=== PATIENT | female | born 1945 | race Caucasian/White ===

== ENCOUNTER 2016-05-04 16:07 | Inpatient (IN) | payer MEDICARE ==
[~2016-05-04] VITALS: Ht 167.6 cm; Wt 102.2 kg
[~2016-05-04 16:07] MED LIST: Propofol 10,000 mCg/mL 20 mL Inj ONE
[2016-05-04 16:15] VITALS: BP 128/34; PULSE 65; RESP 16; O2SAT 99
--- NOTE | 2016-05-04 16:19 | ED.REPORT ---
HPI-Altered Mental Status Date of Service May 04, 2016 ED Provider: Narciso Macias MD Patient is a 70 year old female on Coumadin with a history of ischemic colitis, atrial fibrillation, diabetes mellitus, hypertension, chronic kidney disease, CABG, coronary artery disease with recent cardiac stenting on 04/28 who presents to the ED via EMS with decreased level of consciousness that began after a seizure-like episode 18 hours ago. Her describes seizure-like activity/ possible syncopal episode, with approximately 2 minutes of loss of consciousness. Her states that she started trembling and then shaking. Her arms went up to her chest and then out from her body, she continued to shake as she stared up to the ceiling. The patient has not returned to her baseline since that time. He states that she has experienced increased weakness and that she has been unable to transfers on her own. The patient is at her baseline otherwise per her and is mentating normally. The patient does not believe that she lost consciousness during this episode, she simply states that she felt "real woozy". Patient admits to nausea on arrival to the ED. The patient underwent cardiac stenting 2 weeks ago at [facility] and was placed on Coumadin after this hospital admission. She has been doing well since that time and recovering in bed. Patient also has a history of anemia and received 2x units of blood during prior hospital admission. The patient states that her tailbone has started hurting for the past 2-3 days, due to increased time spent sitting in bed. She denies any chest pain, difficulty breathing, abdominal pain, diarrhea, or fever. The patient is prescribed narcotic pain medication, but she does not take these medications regularly. Nursing Notes Stated Complaint: ALTERED LEVEL OF CONCIOUSNESS Chief Complaint: General Complaint Nursing Notes Reviewed: Yes Allergies: Coded Allergies: meperidine (Verified Adverse Reaction, Severe, Nausea,Vomiting, 05/04/16) General Time Seen by MD: 16:19 Chief Complaint Decreased responsiveness Hx Obtained From: Patient Arrived By: Ambulance Sudden in Onset?: No Onset Occurred: 17 - 20 hours ago Symptom Duration: Since onset Progression since Onset: Gradually worsening Severity: Current: No pain currently Severity: Maximum: No pain Recent Healthcare: No recent doctor visit, Recent hospitalization, Previous surgery Similar Sx Previous: No Past Medical History Past Medical History ANDRES on CPAP history of anemia ischemic colitis 2x chronic kidney disease history of breast cancer Reports: Coronary artery disease, Diabetes mellitus, Hyperlipidemia, Hypertension Reports: Atrial fibrillation, Thyroid disease Past Surgical History cardiac stenting CABG 3x thryoidectomy colonoscopy 3-4 years ago "they never found anything" Reports: Hysterectomy Smoking History Smoker Current Status UNK Social History Other Social History: Good social support, , Local resident Ambulatory Status Independent Review of Systems Constitutional: Denies: Chills, Fever Respiratory: Denies: Shortness of breath Cardiovascular: Denies: Chest pain GI: Reports: Nausea, Denies: Abdominal pain, Bloody/tarry stool, Hematochezia Neurologic: Reports: Change LOC, Dizziness, Seizure (possible), Shaking, Syncope (possible) Complete sys rev & neg: except as marked. Physical Exam Initial Vital Signs Vital Signs (First) Date Time Temp Pulse Resp B/P Pulse Ox O2 Delivery O2 Flow Rate FiO2 05/04/16 16:15 36.5 65 16 128/34 99 Room Air Initial VS: Reviewed ENT: Conjunctiva normal, No scleral icterus Skin: Warm, Dry, No cyanosis Psychiatric: Mood/affect normal, Behavior normal, Normal thought content General/Constitutional: Awake, Alert, No acute distress Appearance / Presentation: Positive: Obese responding and answering questions appropriately Head / Eyes: Atraumatic, Normocephalic, PERRL Neck: Supple, No meningismus Respiratory / Chest: Breath sounds NL, Breath sounds = bilat, No respiratory distress, No rales, No rhonchi, No wheezing Cardiovascular: Heart rate NL, Regular rhythm, Heart sounds NL, No gallop, No murmurs, No rubs Neurologic: Oriented X3, Speech NL, CN II - XII intact Abdomen: Soft, Non-tender Back: No midline vertebral tend no decubitus ulcers Upper Extremity / MS: No swelling, No edema Lower Extremity / Pelvis / MS: No swelling, No edema Rectum / Perineum: No gross blood Rectal for Blood: Positive: Blood - occult heme + (blood red stool) Boom Cat Operator present Interpretation & Diagnostics Lab Results Interpretation Result Diagram: 05/04/16 1630 05/04/16 1630 Test 05/04/16 16:30 White Blood Count 17.6th/mm3 (3.8-10.1) Red Blood Count 1.78mil/mm3 (3.90-5.20) Hemoglobin 5.2g/dL (12.0-15.6) Hematocrit 17.1% (35.0-46.0) Mean Corpuscular Volume 96fL (81-100) Mean Corpuscular Hemoglobin 29.2pg (27.0-35.0) Mean Corpuscular Hemoglobin Concent 30.4% (32.0-37.0) Red Cell Distribution Width 18.8% (12.3-15.4) Platelet Count 432bil/L (150-400) Neutrophils (%) (Auto) 83% (40-74) Lymphocytes (%) (Auto) 11% (14-46) Monocytes (%) (Auto) 5% (4-12) Eosinophils (%) (Auto) 1% (0-5) Basophils (%) (Auto) 0% (0-3) Prothrombin Time 58.9sec (8.1-12.5) Prothromb Time International Ratio 5.32ratio Sodium Level 135mEq/L (134-144) Potassium Level 4.4mEq/L (3.5-5.2) Chloride Level 99mEq/L (97-108) Carbon Dioxide Level 22mmol/L (18-29) Blood Urea Nitrogen 121mg/dL (8-27) Creatinine 1.97mg/dL (0.57-1.00) Estimat Glomerular Filtration Rate 36mL/min (>59) Glucose Level 202mg/dL (60-99) Lactic Acid Level 1.8mmol/L (0.4-2.0) Calcium Level 8.6mg/dL (8.5-10.1) Magnesium Level 2.7mg/dL (1.6-2.6) Total Bilirubin 0.2mg/dL (0.0-1.2) Aspartate Amino Transf (AST/SGOT) 23U/L (0-50) Alanine Aminotransferase (ALT/SGPT) 18U/L (0-32) Alkaline Phosphatase 63U/L (25-165) Troponin T < 0.010ug/L (0.0-0.011) Pro-B-Type Natriuretic Peptide 619.0pg/mL (0-301) Total Protein 5.9g/dL (6.4-8.4) Albumin 3.4g/dL (3.4-5.0) ECG Interpretation ECG Interpretation: Sinus rhythm, Rate [address] or T wave changes Time: 17:15 Interpreted by: ED physician Normal ECG Interpretation: No acute ischemic changes X-Ray Chest Interpretation Chest Xray Interpretation: IMPRESSION: Improved aeration of the bilateral lungs when compared with the prior chest film dated 04/21/16. Dictated by: Lily Pereria M.D. on 05/04/2016 at 16:44 Approved by: Lily Pereira M.D. on 05/04/2016 at 16:44 View: Portable Interpretation / Wet Read by: Interpret - Radiologist CT Head Interpretation IMPRESSION: 1. No acute intracranial findings. 2. Moderate findings likely associated with chronic microvascular ischemic changes. Dictated by: Lily Pereira M.D. on 05/04/2016 at 17:00 Approved by: Lily Pereira M.D. on 05/04/2016 at 17:00 Study: Head CT no contrast Interpretation / Wet Read by: Interpret - Radiologist Re-Eval/Medical Decision Med Decision/Clinical Course 70-year-old female history of CAD, atrial fibrillation, cardiac stent placed 2 weeks ago presenting with syncopal event last night. Blood pressures are stable. Hemoglobin is 5. INR is 5. Guaiac positive stools with red tint. Discussed with GI who recommends admission with GoLYTELY and PPI drip. I also ordered 2 units PRBCs, 2 units FFP, vitamin K 10 mg. She will be admitted to the hospitalist Dr. Grayson, [facility]. She is on Plavix for her stent and her pattern finisher will need to be contacted regarding discontinuing Plavix in the setting of recent stent. She has had colonoscopies in the past at outside facility and was told everything was normal other than history of possible ischemic colitis in the past. She denies any abdominal pain at this time. Admit to PCC. Source of Hx: Old records Re-Evaluation/Progress #1: Time of Eval: 17:20 Re-Evaluation/Progress Note: Rechecked the patient to discuss the results of her labs. She was found to be anemic. Patient has a history of anemia, but they do not know where her exact bleeding source was. However, she has had 2x episodes of ischemic colitis previously. Patient does not have a GI physician in the area. Her last colonoscopy was 3-4 years ago. She denies having any bloody or tarry stool. Patient reports receiving 2x units of blood during her recent hospital admission. Re-Evaluation/Progress #2: Time of Eval: 17:40 Patient Status: Condition improved Re-Evaluation/Progress Note: Patient and her understand and agree with the plan for hospital admission. All questions were addressed. Consultation #1: Referral / Consult Name: José Miguel Ward MD Consulted With: On-call physician (GI) Call Returned at: 17:37 Fisheries Inspector: Will see patient, Agrees with eval, Agrees with plan Note: Spoke with FRANK Sullivan, about the patient's case. Admit the patient. Jcarlos velazquez. PPI hernan. He agrees to act as consult on the patient's case. Consultation #2: Referral / Consult Name: Neeraj Grayson MD Consulted With: Hospitalist Call Returned at: 18:08 Fisheries Inspector: Will see patient, Agrees with eval, Agrees with plan, Accepts admit Note: Spoke with Dr. Grayson hospitalist, who agrees to accept admit. Counseled Regarding: Diagnosis, Lab results, Need for admission Patient Discharge & Departure Impression: Primary Impression: GI bleeding GI bleed type/associated pathology: unspecified gastrointestinal hemorrhage type Qualified Code: K92.2 - Gastrointestinal hemorrhage, unspecified Additional Impressions: Anemia Anemia type: unspecified type Qualified Code: D64.9 - Anemia, unspecified Supratherapeutic INR Disposition: ADMITTED TO HOSPITAL Discharge Condition All VS Reviewed: Yes Condition: Stable Scribe Attestation Portions of this note were transcribed by Lakeisha Davis. I, Dr. Macias personally performed the history, physical exam and medical decision-making; I reviewed and confirmed the accuracy of the information in the transcribed note. Signed by: Adelita Rivera, 05/04/2016 1812 Narciso Macias MD May 04, 2016 16:19 Lakeisha Davis May 04, 2016 16:24
[2016-05-04] MEDS ORDERED: Ondansetron 2 mg/mL 2 mL Inj IVPUSH PRN ×2 (16:30→18:15)
--- NOTE | 2016-05-04 16:46 | DRSVH ---
PROCEDURE: X-RAY CHEST ONE VIEW, PORTABLE ([id number]) INDICATIONS: SHORTNESS OF BREATH TECHNIQUE: One view of the chest was acquired. COMPARISON: [facility], CHEST 1 VIEW, 04/21/2016, 14:32. FINDINGS: Surgical changes and devices: Patient is status post median sternotomy and CABG. Lungs and pleura: There is improved aeration of the bilateral lungs when compared with the prior ches t film dated 04/21/16. No acute air space opacities. Lung volumes are low. Mediastinum: Mediastinal contours appear normal. Heart size is normal. Bones and chest wall: No suspicious bony lesions. Overlying soft tissues appear unremarkable. IMPRESSION: Improved aeration of the bilateral lungs when compared with the prior chest film dated . Dictated by: Lily Pereira M.D. on 05/04/2016 at 16:44 Approved by: Lily Pereira M.D. on 05/04/2016 at 16:44
--- NOTE | 2016-05-04 17:02 | DRSVH ---
PROCEDURE: CT BRAIN WITHOUT CONTRAST ([id number]) INDICATIONS: altered mental status TECHNIQUE: Noncontrast 4.5 mm thick angled axial sections acquired from the foramen magnum to the vertex, with c oronal reformats. COMPARISON: [facility], CT, HEAD WITHOUT CONTRAST, 01/29/2016, 16:45. FINDINGS: Image quality: Excellent. CSF spaces: Basal cisterns are patent. No extra-axial fluid collections. The ventricles are symmet olinda in size and shape. Brain: No intracranial bleeds or masses. There is cerebral volume loss for age, with resultant vent ricular and sulcal prominence. There are periventricular and deep white matter chronic small vessel ischemic changes. There is intracranial internal carotid artery atherosclerosis. Skull and face: Calvarium and visualized facial bones appear intact, without suspicious lesions. Sinuses: Visualized sinuses and mastoids are clear. IMPRESSION: 1. No acute intracranial findings. 2. Moderate findings likely associated with chronic microvascular ischemic changes. Dictated by: Lily Pereira M.D. on 05/04/2016 at 17:00 Approved by: Lily Pereira M.D. on 05/04/2016 at 17:00
[2016-05-04 17:06] LABS: Magnesium 2.7 mg/dL (1.6-2.6)
[2016-05-04 17:10] LABS: TROPONIN T < 0.010 ug/L (0.0-0.011)
[2016-05-04 17:15] LABS: INR 5.32 ratio
[2016-05-04 17:17] LABS: Mean Corpuscular Hemoglobin 29.2 pg (27.0-35.0); Mean Corpuscular Volume 96 fL (81-100); Platelet Count 432 bil/L (150-400)
[2016-05-04 17:18] LABS: BASOPHILS % (AUTO) 0 % (0-3); EOSINOPHILS % (AUTO) 1 % (0-5); MONOCYTES % (AUTO) 5 % (4-12); NEUTROPHILS % (AUTO) 83 % (40-74)
[2016-05-04 17:30] VITALS: BP 129/50; PULSE 65; RESP 13; O2SAT 100
[2016-05-04] MEDS ORDERED: Phytonadione (Adult) 10 MG in Dextrose 5%-Pha MIX 50 ML IV ONE (17:35)
[2016-05-04] MEDS ORDERED: Pantoprazole Inj 80 MG, Pharmacy To Mix 1 EA in 0.9% Sodium Chloride 80 ML IV ONE ×2 (17:55)
[2016-05-04] MEDS ORDERED: Alum-Mag Hydrox-Simeth 30 mL Suspension PO PRN (18:15)
--- NOTE | 2016-05-04 18:33 | PCM.HPMED ---
Subjective Date of Service May 04, 2016 Primary Provider: Admitting Physician: Primary Care Physician: Stan Guerra MD Attending Physician: Chief Complaint: Altered mentation/passing out per HISTORY was OBTAINED FROM PATIENT / [facility] NOTES History of present illness 70-year-old female, ischemic colitis history, paroxysmal A. fib/coronary stent on 04/28/2016 discharged 6 days ago w/ new Coumadin and new Plavix from [facility] in [place] with follow up w/ cardiology tomorrow, but then presented after tremulous episode while seated then head went back with loss of consciousness 2 minutes per . vomiting ocurred prior to this episode w/ chronic gagging at baseline, no diarrhea, no food poisoning. baseline Hg 9 per patient after PCP had her taken off iron months ago, no bone marrow bx no capsule endoscopy. no bleeding grossly anywhere except yesterday nose bleed x 1. Coronary stent hospitalization was associated w/ Iron infusion and diuresis of 25lbs per patient. 2007 ischemic colitis associated w/ blood mixed in stool. no blood in stool per patient noted recently. Negative colonoscopy within 5 years per patient. In the ER vital signs stable, hemoglobin 5, INR 5, guaiac per ER doc was grossly bloody, 2 units RBC and FFP and vitamin K ordered. Alagugurusamy GI will scope in the morning. . 2L O2 Review of Systems - none of the following - F/C/sick contact / wt change/ MOLINA / lightheaded / dizziness / sob / cough / cp / bruising / leg swelling / change in voiding / dysuria/ yeast infections / rash / seizure c/o GERD, chronic gagging w/o dysphagia FAMILY HX no ischemic colitis SOCIAL HX 1ppd smoker MEDICATIONS amiodarone diltiazem famotidine percocet gabapentin baclofen oxybutynin vitamins losartan Past Medical/Surgical HX UTI peptic ulcer at age 17, no EGD ever ANDRES on CPAP history of anemia ischemic colitis 2x chronic kidney disease history of breast cancer Diabetes mellitus, Hyperlipidemia, Hypertension, cardiac stenting, CABG 3x Atrial fibrillation, hypothyroidism overactive bladder crhonic pain Past Surgical History thryoidectomy colonoscopy 3-4 years ago "they never found anything" Hysterectomy Allergies Coded Allergies: meperidine (Verified Adverse Reaction, Severe, Nausea,Vomiting, 05/04/16) PMH Social History Smoking Status: Smoker Current Status UNK Exam Vital Signs Vital Sign - Last Date Time Temp Pulse Resp B/P Pulse Ox O2 Delivery O2 Flow Rate FiO2 05/04/16 17:30 65 13 129/50 100 Room Air 05/04/16 16:15 36.5 Lab and Diagnostics Labs Exam on admission 2L NC NAD A and O x 3 mood affect WNL, fatigued, accurate replies, sitting upright NC/AT no icterus keeps eyes closed /no oral lesions / hearing intact Supple neck CTAB equal chest rise / no accessory muscle use / speaks in full sentences / no rrw RRR S1 S2 / no mrg / 2+ radial pulses Soft nt nd + BS no hepatosplenomegaly mild edema shins which are tender to palpation, no cyanosis no ecchymosis of lower extremities No rash / no jaundice MACEDO EKG QTC UA pending LFT neg Trop I neg x 1 PROCEDURE: CT BRAIN WITHOUT CONTRAST ([id number]) INDICATIONS: altered mental status TECHNIQUE: Noncontrast 4.5 mm thick angled axial sections acquired from the foramen magnum to the vertex, with coronal reformats. COMPARISON: [facility], CT, HEAD WITHOUT CONTRAST, 01/29/2016, 16:45. FINDINGS: Image quality: Excellent. CSF spaces: Basal cisterns are patent. No extra-axial fluid collections. The ventricles are symmetric in size and shape. Brain: No intracranial bleeds or masses. There is cerebral volume loss for age , with resultant ventricular and sulcal prominence. There are periventricular and deep white matter chronic small vessel ischemic changes. There is intracranial internal carotid artery atherosclerosis. Skull and face: Calvarium and visualized facial bones appear intact, without suspicious lesions. Sinuses: Visualized sinuses and mastoids are clear. IMPRESSION: 1. No acute intracranial findings. 2. Moderate findings likely associated with chronic microvascular ischemic changes. PROCEDURE: X-RAY CHEST ONE VIEW, PORTABLE ([id number]) INDICATIONS: SHORTNESS OF BREATH TECHNIQUE: One view of the chest was acquired. COMPARISON: [facility], CR, CHEST 1 VIEW, 04/21/2016, 14:32. FINDINGS: Surgical changes and devices: Patient is status post median sternotomy and CABG. Lungs and pleura: There is improved aeration of the bilateral lungs when compared with the prior chest film dated 04/21/16. No acute air space opacities. Lung volumes are low. Mediastinum: Mediastinal contours appear normal. Heart size is normal. Bones and chest wall: No suspicious bony lesions. Overlying soft tissues appear unremarkable. IMPRESSION: Improved aeration of the bilateral lungs when compared with the prior chest film dated 04/21/16. Result Diagram: 05/04/16 1630 05/04/16 1630 Assessment & Plan Active issues and reason for admission 70-year-old female with acute on chronic anemia due to GI bleed presented as syncopal episode, prior ischemic colitis/GERD, hemodynamically stable, associated supratherapeutic INR - new coumadin and new plavix GI bleed --PPI IV BID/ contineu home [id number]/ Transfuse RBCs/FFP/serial hemoglobin/INR , -- GIAlagugurusamy considering waiting on endoscopy, due to recent coronary stent -- clear liquid, -- pending retic count Paroxysmal Atrial fibrillation -- Hold Coumadin Coronary stent 2 weeks ago -- Continue Plavix, contact her hull grinder in [place] -- serial trop I Chronic gagging --TELLER HEAD swallow eval pending DEAN likely, unknown baseline Cr, likely due to hypoperfusion --pending requested reports from cardiology --monitor i/o, monitor CHF symptoms Chronic issues known prior to admission, present on admission smoker, declines patch/gum due to nausea side effect ANDRES on CPAP history of anemia chronic kidney disease history of breast cancer Diabetes mellitus, Hyperlipidemia, Hypertension, cardiac stenting, CABG 3x hypothyroidism overactive bladder chronic pain --SSI / resume all home medications, holding parameters on HTN meds Diet clear liq diet DVT prophylaxis already supratherapeutic and anemic scd Code full Disposition PCC Assessment and plan were discussed with patient family. Neeraj Grayson MD May 04, 2016 18:33
[2016-05-04] MEDS ORDERED: 0.9% Sodium Chloride 250 ML ONE (19:03)
[2016-05-04 19:16] VITALS: BP 124/46; PULSE 66; RESP 12; O2SAT 100
[2016-05-04] MEDS ORDERED: ATOR40TA69 PO (19:44)
[2016-05-04] MEDS ORDERED: CLOP75TA28 PO (19:44)
[2016-05-04] MEDS ORDERED: AMIO200T PO (19:44)
[2016-05-04] MEDS ORDERED: CARV12.52 PO (19:44)
[2016-05-04] MEDS ORDERED: FLUT16SP NASAL (19:44)
[2016-05-04] MEDS ORDERED: WARF3TAB7 PO (19:46)
[2016-05-04] MEDS ORDERED: DILT120C52 PO (19:46)
[2016-05-04] MEDS ORDERED: TORS20TA3 PO (19:46)
[2016-05-04] MEDS ORDERED: OXYB10TA PO (19:46)
[2016-05-04] MEDS ORDERED: BACL20TA PO (19:49)
[2016-05-04] MEDS ORDERED: OMEG1CAP17 PO (19:49)
[2016-05-04] MEDS ORDERED: CALC600T12 PO (19:49)
[2016-05-04] MEDS ORDERED: DULO30CA50 PO (19:49)
[2016-05-04] MEDS ORDERED: ASPI-973 PO (19:49)
[2016-05-04] MEDS ORDERED: DOCU-41 PO (19:49)
[2016-05-04] MEDS ORDERED: GABA-500 PO (19:51)
[2016-05-04] MEDS ORDERED: OXYC-466 PO (19:51)
[2016-05-04] MEDS ORDERED: NOVO7030I SUBQ (19:56)
[2016-05-04] MEDS ORDERED: INSU100V28 SUBQ (19:56)
[2016-05-04] MEDS ORDERED: LEVO125T2 PO (19:56)
[2016-05-04] MEDS ORDERED: LOSA50TA37 PO (19:56)
[2016-05-04] MEDS ORDERED: INSLIS SC (19:57)
[2016-05-04] MEDS ORDERED: SENN-133 PO (20:01)
[2016-05-04] MEDS ORDERED: POLY17PO2 PO (20:01)
[2016-05-04] MEDS ORDERED: PROC10TA PO (20:01)
[2016-05-04] MEDS ORDERED: NITR0.4T6 SL (20:01)
[2016-05-04] MEDS ORDERED: RANI300T4 PO (20:01)
[2016-05-04] MEDS ORDERED: HYDR-3740 PO (20:05)
[2016-05-04] MEDS ORDERED: Glucose 40% Oral Gel 15 Gm Tube PO PRN (20:25)
[2016-05-04] MEDS ORDERED: Polyethylene Glycol (PEG) 17 Gm Powder PO PRN (20:25)
[2016-05-04 20:30] VITALS: BP 147/51; PULSE 71; RESP 16; O2SAT 100
--- NOTE | 2016-05-04 20:30 | NUR ---
Admit Pt arrived to PCC from ED around 2029. Pt arrived with and all belongings. Pt is alert to self, pt did not remember what hospital she was at and was confused on the date, able to reorient pt. Pt arrived to floor with PRBC's running and tolerated first unit of blood well. Pt states that she is incontinent. Pt has not been out of bed but up to bedside to dangle and tolerated well. VSS and Tele SR
[2016-05-04 20:45] VITALS: BP 118/64; PULSE 82; RESP 12
[2016-05-04] MEDS: Insulin LISPRO 300 Unit/3 mL Inj SUBQ SCH (22:00)
[2016-05-04 22:33] VITALS: BP 143/77; PULSE 72; RESP 18; O2SAT 100
[2016-05-04] MEDS: DULoxetine 30 mg DR Capsule PO SCH (23:25)
[2016-05-04] MEDS: Fluticasone 0.05% 15 Spray/2 Gm 16 Gm Nasal Spray NASAL SCH (23:27)
[2016-05-05] VITALS (15 sets, daily range): BP systolic 109–169; BP diastolic 50–74; PULSE 71–86; RESP 16–22; O2SAT 98–100
[2016-05-05] MEDS ORDERED: 0.9% Sodium Chloride 250 ML ONE ×2 (00:07→00:08)
[2016-05-05 02:43] LABS: INR 1.43 ratio
[2016-05-05 03:34] LABS: APPEARANCE,URINE CLOUDY (CLEAR,HAZY); COLOR,URINE STRAW (YELLOW); OCCULT BLOOD,URINE TRACE (NEGATIVE); PH,URINE 5.5 (5.0-8.0); UROBILINOGEN,URINE NORMAL (NORMAL)
[2016-05-05] MEDS: HYDROcodone-APAP 10-325 mg PO PRN ×2 (04:51→19:42)
--- NOTE | 2016-05-05 05:35 | NUR ---
Blood Transfusion Reaction Started second unit of PRBC's around 0100 within 15 mins of transfusion pt c/o of "just not feeling quite right, I have back pain that is different and I feel restless, can't get comfortable, I feel flushed and have chills." Stopped transfusion and notified . Orders to stop this unit and start a new unit were given. Transfusion reaction paperwork completed, UA sent per protocol, blood draw ordered and the unit of PRBC's with suspected reaction sent to lab. Per shift lab technician the new unit of PRBC's will not be started until transfusion reaction investigated, notified.
[2016-05-05 08:59] LABS: INR 1.3 ratio
[2016-05-05 09:12] LABS: TROPONIN T 0.01 ug/L (0.0-0.011)
--- NOTE | 2016-05-05 09:14 | NUR ---
Refused Medications/Mentation Pt refused all medications after scanning and dispensing in medication cup. Acknowledged medications after read back two times, then stated she did not want any of them, except for 1 unit of Lispro. Pt at bedside stating pt is getting worse re mentation. Stating he believes she is having a reaction to the second unit of blood or medications being given. Stated she is not the same person, is asking for MD. This RN notified MD. Hg 5.4, Hct 17.3, pathologists involved to determine if pt is having a reaction.
[2016-05-05] MEDS ORDERED: Acetaminophen IV 1,000 MG in IV Premix 1 EACH IV ONE (09:15)
[2016-05-05 09:39] LABS: Bilirubin, Direct 0.2 mg/dL (0.0-0.3)
[2016-05-05] MEDS ORDERED: 0.9% Sodium Chloride 250 ML IV PRN (11:20)
[2016-05-05] MEDS: Pantoprazole 4 mg/mL 10 mL Inj IVPUSH SCH ×2 (12:32→18:10)
[2016-05-05] MEDS: Insulin LISPRO 300 Unit/3 mL Inj SUBQ SCH ×4 (12:34→19:27)
[2016-05-05] MEDS: Fluticasone 0.05% 15 Spray/2 Gm 16 Gm Nasal Spray NASAL SCH ×2 (12:34→19:24)
[2016-05-05] MEDS: Diltiazem CD 120 mg ER24 Capsule PO SCH (12:36)
--- NOTE | 2016-05-05 15:32 | PCM.CHPMED ---
Subjective Date of Service: May 05, 2016 Provider requesting consult: Neeraj Grayson MD Primary Physician: Admitting Physician: Neeraj Grayson MD Primary Care Physician: Stan Guerra MD Attending Physician: José Miguel Ward MD Chief Complaint: Chief Complaint: Weakness History of Present Illness: Patient is a 70 year old female with a history of ischemic colitis, atrial fibrillation on Coumadin, diabetes mellitus, hypertension, CKD, CABG, and CAD with recent cardiac stenting on 04/28/16 who presents to the ED via EMS with decreased level of consciousness that began after an episode of tremulousness or possible seizure-like activity. Her describes seizure-like activity/ possible syncopal episode, with approximately 2 minutes of loss of consciousness. Her states that she started trembling and then shaking while sitting down; the patient has had increased weakness, unable to transfers on her own, but is at her baseline otherwise per her and is mentating normally. The patient does not believe that she lost consciousness during this episode, she simply states that she felt "real woozy". In the ED, she had a brown bowel movement that was guaiac positive. Her INR was 5.2, Hct 17.1. Cr was 1.97. Bilirubin and LFTs were normal. Brain CT and CXR were normal. INR was 5.32 on admission. She received 2U PRBCs on admission, and repeat Hb this morning was 5.4. This morning, she reports weakness and confusion. She denies any chest pain, difficulty breathing, abdominal pain, N/V/ D, or fever. The patient underwent cardiac stenting 2 weeks ago at and was placed on Coumadin after this hospital admission. Patient also has a history of chronic anemia and received 2 units of blood during prior hospital admission. She denies a family history of colon cancer. Her last colonoscopy was about 3 years ago, and was normal, with a follow-up in 10 years. Review of Systems: Comprehensive review of systems conducted and was negative except for the pertinent positives listed above. PMH Past Medical History UTI peptic ulcer at age 17, no EGD ever ANDRES on CPAP history of anemia ischemic colitis 2x chronic kidney disease history of breast cancer Diabetes mellitus Hyperlipidemia Hypertension Cardiac stenting CABG 3x Atrial fibrillation, hypothyroidism overactive bladder chronic pain Bedside Blood Glucose: 177 Surgical History thryoidectomy colonoscopy 3-4 years ago "they never found anything" Hysterectomy Allergies: Coded Allergies: meperidine (Verified Adverse Reaction, Severe, Nausea,Vomiting, 05/04/16) Family History Family History Noncontributory Social History Hx Alcohol Use: NoHx Substance Use: NoHx Tobacco Use: No Smoking Status: Smoker Current Status UNK Exam Vital Signs Vital Sign - Last Date Time Temp Pulse Resp B/P Pulse Ox O2 Delivery O2 Flow Rate FiO2 05/05/16 13:46 36.8 79 17 110/59 05/05/16 13:38 99 Room Air 05/05/16 03:13 2.00 Intake and Output 05/04/16 05/04/16 05/05/16 Cumulative From/Thru 15:00 23:00 07:00 05/04/16 16:15 - 05/05/16 05:59 Intake Total 60 ml 805 ml 865 ml Output Total 800 ml 800 ml Balance 60 ml 5 ml 65 ml Intake Oral 400 ml 400 ml IV Total 60 ml 85 ml 145 ml Packed Cells 15 ml 15 ml FFP 305 ml 305 ml Output Urine Total 800 ml 800 ml # Voids 2 2 Additional Information: General: Alert, Oriented X3 but gets other facts wrong or appears confused about details, Cooperative, No Acute Distress. Appears fatigued. Head: Normocephalic, atraumatic. External ears normal. Eyes: PERRLA, EOMI. Anicteric sclerae. Mouth: Mouth Normal, Mucous Membranes Moist/[place] Neck: Neck supple with full range of motion. Chest & Lungs: Clear to auscultation bilaterally with no crackles, wheezes, or rhonchi. Cardiovascular: Regular Rate/Rhythm, Normal S1, Normal S2, No Murmurs/Rubs/ Gallops Abdomen: Non-tender, Non-distended, No masses, Normoactive bowel tones, Soft Musculoskeletal: Normal Range of Motion Extremities: Mild bilat LE edema Neurological: Grossly Neurologically Intact, Normal Speech Lab and Diagnostics Result Diagram: 05/05/1682405/05/16824 Assessment & Plan Assessment Patient is a 70 year old female with a history of ischemic colitis, atrial fibrillation on Coumadin, diabetes mellitus, hypertension, CKD, CABG, and CAD with recent cardiac stenting on 04/28/16 who presents to the ED via EMS with decreased level of consciousness that began after an episode of tremulousness or possible seizure-like activity Acute anemia. - Pt presents with Hb 5, INR 5.32, guaiac positive but brown stool. She denies vomiting blood or bloody stool. It certainly is possible that her anemia could be secondary to a GI bleed, but her stool was brown on exam, and would more likely be red in the presence of a nick bleed. We will proceed with endoscopy but other sources of bleeding should also be investigated. She has a history of CKD with a Cr currently of 1.72, so her CKD may be contributing to her anemia. Bilirubin is normal, so hemolytic anemia is unlikely. She has received 2U of blood during a previous admission for anemia, and has received 2U so far this admission. She is on Aspirin and Plavix for her recent cardiac stent and these will likely need to be continued to prevent the stent from re-occluding. Recommend Cardiology consult to further discuss management of her anticoagulants at this time. Discussed with patient and family, and they are resistant to the idea of a colonoscopy as she has received several colonoscopies for previous admissions for anemia. - Recommend Protonix 40 mg BID - Monitor H&H, transfuse as necessary. - Will proceed with upper endoscopy tomorrow if patient consents. History of ischemic colitis - Secondary to cardiovascular disease. This appears to be stable at the moment. - Continue to monitor. Problems: Attending Statement Patient seen and examined with resident physician Agree with his H and P Per family longstanding history of iron deficiency anemia. Received iron infusion prior to cardiac stent placement. last colonoscpy thre years ago was normal No overt bleeding. On my exam in ER yesterday she had brown stool. also states she has had brown BM at home prior to hospital admission. After much discussion with patient and two daughters. Plan for EGD tomorrow. James Christopher May 05, 2016 14:34 José Miguel Ward MD May 05, 2016 23:20
--- NOTE | 2016-05-05 15:47 | NUR ---
Social Work: Initial Assessment D: Per EMR review, pt is a 70 year old female admitted for Anemia GI bleed. Pt is Medicare with [employer] supplement. PCP Is Stan Guerra MD. NOK Is Arvind Box, , . Advanced directives not completed-information provided to pt and family. Readmit score is moderate, 3/8. TROMPER met with pt and daughter at bedside. Sw role explained. See initial assessment. Pt lives at home in [place] with her spouse. She uses a walker at baseline and has ramp access to her home. Pt recently had a stent placement and was discharged home with home health through [facility]. They have not yet come out to see her. Pt denies any SNF placements. t/c to [place] with [facility] to notify of pt's admission; access provided and they are following. A: Pt who previously lived at home with spouse P: Evolving; TROMPER to continue to follow and assist with discharge needs pending clinical course. SYDNI Cevallos Addendum: 05/05/16 at 1551 by AUTUMN SOLIS Amended: Links added.
--- NOTE | 2016-05-05 17:52 | PCM.PNMED ---
Subjective Date of Service May 05, 2016 Subjective 70-year-old woman with atrial fibrillation on warfarin, status post cardiac stent on now on Plavix, history of ischemic colitis in 2007, and history of chronic anemia of uncertain cause presents with episode of syncope, possible seizure, acute kidney injury and severe symptomatic anemia. Patient is in considerable psychological distress today. Intermittently agitated stating she feels terrible all over. She complains variably of leg and lower back pain Family reports that she is moderately confused. Family denies any black or maroon colored stool and there been no bowel movements today. He has no abdominal complaints. She has had no further seizure like episodes. Exam Vital Signs Vital Sign - Last Date Time Temp Pulse Resp B/P Pulse Ox O2 Delivery O2 Flow Rate FiO2 05/05/16 16:55 36.5 71 16 130/61 05/05/16 13:38 99 Room Air 05/05/16 03:13 2.00 Intake and Output 05/04/16 05/04/16 05/05/16 Cumulative From/Thru 15:00 23:00 07:00 05/04/16 16:15 - 05/05/16 05:59 Intake Total 60 ml 805 ml 865 ml Output Total 800 ml 800 ml Balance 60 ml 5 ml 65 ml Intake Oral 400 ml 400 ml IV Total 60 ml 85 ml 145 ml Packed Cells 15 ml 15 ml FFP 305 ml 305 ml Output Urine Total 800 ml 800 ml # Voids 2 2 Exam General: Obese woman in moderate distress, with restless motor movements and sighing HEENT: sclerae anicteric, oral mucosa moist Neck: no apparent JVD Chest: clear to auscultation Cardiac: S1S2, II/ systolic murmur Abdomen: BS present, non-tender Extremities: No edema, stasis changes Neuro: A&O responding to questions appropriately, cranial nerves symmetric, motor strength and coordination normal IVs and Medications Medications Reviewed: Medications were reviewed in detail Lab and Diagnostics Reticulocyte count 8.8; with RPI 1.3% (hypoproliferative); rbc's normocytic WBC 17.6 Lactic acid 1.8 Total bilirubin 0.2, haptoglobin pending Troponin T negative 3 ProBNP 619 Result Diagram: 05/05/16 0825 05/05/16 0825 X-Rays, CTs and MRIs PROCEDURE: CT BRAIN WITHOUT CONTRAST ([id number]) IMPRESSION: 1. No acute intracranial findings. 2. Moderate findings likely associated with chronic microvascular ischemic changes. Dictated by: Lily Pereira M.D. on 05/04/2016 at 17:00 PROCEDURE: X-RAY CHEST ONE VIEW, PORTABLE ([id number]) IMPRESSION: Improved aeration of the bilateral lungs when compared with the prior chest film dated 04/21/16. Dictated by: Lily Pereira M.D. on 05/04/2016 at 16:44 . Assessment & Plan Active and/or high risk problems: # Symptomatic anemia. Acute on chronic. Family reports past episodes of evaluation for anemia with no source identified. The patient gives no history to suggest acute GI bleeding at this time. Emergency department note documented red blood on rectal exam but other reports suggest brown stool. There is been no further stool output today. There is no evidence of hemolysis. Clinically there are no symptoms to suggest hematoma or other bleeding site. She reported symptoms of malaise and back pain after transfusion today. No evidence of significant allergic reaction. No evidence of hemolytic reaction. She was given Benadryl and acetaminophen and proceeded with transfusion. - GI consult; to proceed toward endoscopy upper, no current plan for lower endoscopy - Transfuse RBCs with threshold greater than hemoglobin 7.0 # Acute kidney injury and/or chronic kidney disease. We do not have baseline serum creatinine. Family reports prior episode of acute kidney injury in which she was encephalopathic and agitated. Cause of current achy eyes unclear as she and family do not give history of hypovolemia. - Follow with hydration and blood transfusion - Daily renal panel # Paroxysmal Atrial fibrillation with anticoagulation excess on warfarin. Acute. INR was 5.32 on admission. Vitamin K was given with marked decline in INR to 1.3 - Hold Coumadin - Telemetry # Coronary stent 2 weeks ago. No current cardiac symptoms. Troponins are negative. 2 calls placed to sales enablement lead in [place]. No response. Cardiac status seems stable at present. - Hold Plavix until after endoscopy, # Seizure or syncopal episode. History is unclear. Syncope due to symptomatic anemia seems most likely. Is not sound like generalized tonic-clonic seizure based on history. Her only proconvulsive medication is prochlorperazine which she has taken for many years. - Follow clinically with treatment for anemia # Encephalopathy, acute. Patient is showing signs of mild delirium and family is very concerned about her mental status. While her affect seems very disordered, and she makes some nonsensical statements, she seems very alert and following conversation and responding with details as needed. Cord compression is metabolic encephalopathy due to uremia and anemia. -Would prefer to minimize medication but will trial low dose of clonazepam due to her restlessness and anxiety - Follow clinically # ANDRES on CPAP. Continue use of home CPAP device, especially of sedatives were given. 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 Terry Asencio MD May 05, 2016 17:52
[2016-05-05] MEDS: DULoxetine 30 mg DR Capsule PO SCH (19:26)
--- NOTE | 2016-05-05 19:36 | NUR ---
Medication/Blood transfusion/Mentation Patients daughters notified this RN that pt is ready for her medications and "was not in her right mind". This RN gave medications at approximately 1230. Started first bag of blood at approximately 1330. Pts family stated pt was having an adverse response again, per report last night pt had an adverse response to second bag of blood, family stated they did not know if it was the medications or blood. This RN reassured family RN would check all medications with Pharmacist. CCU Pharmacist went over med list extensively. This RN notified MD. MD spoke with pt and family. Pt mentation presented with reduced LOC, agitation, moaning. MD prescribed clonazepan for anxiety PRN. Patient visibly pinked up, resting, zero anxiety after first bag of blood. Patient slept through second bag of blood with intermittent wakefulness. Patient is resting comfortably and at ease. Clonazepam held. Notified MD. Care continues.
--- NOTE | 2016-05-05 20:07 | NUR ---
Endo Patient will be picked up for endo procedure at 0830, 05/06/16. Endo RN relayed medications to be given at 0630 prior to procedure and asked this RN to pass onto production supervisor off shift. Three medications: Coreg, Cardizem, Amiodarone to be given at 0630 if Vital signs are stable, stated do not give Cozaar. If VS not stable contact MD for direction. Passed information onto night RN during report.
[2016-05-06] VITALS (12 sets, daily range): BP systolic 83–153; BP diastolic 35–65; PULSE 60–75; RESP 16–20; O2SAT 96–100
[2016-05-06] MEDS: HYDROcodone-APAP 10-325 mg PO PRN (03:34)
[2016-05-06] MEDS: Diltiazem CD 120 mg ER24 Capsule PO SCH (06:34)
--- NOTE | 2016-05-06 08:25 | NUR ---
Mentation Patient AOx3, conversing, following conversations. Ready For Endo at 0830.
--- NOTE | 2016-05-06 09:20 | PCM.HPANE ---
Patient Data Surgeon Admitting Provider:Neeraj Grayson MD Attending Provider:José Miguel Ward MD Primary Care Physician:Stan Guerra MD Other Provider: Reason for Visit Anemia Gi Bleed Ht/WT & BMI Height (Feet): 5 Height (Inches): 6.00 Weight (Kilograms): 102.200 Body Mass Index 36.21 Allergies Coded Allergies: meperidine (Verified Adverse Reaction, Severe, Nausea,Vomiting, 05/04/16) Past Anesthesia History Anesthesia History: Denies:: Anesthesia Reactions Diabetes History Hx Diabetes?: Yes Current Bedside Blood Glucose: 200 MRSA MRSA: No Medications Reported Medications Hydrocodone-Acetaminophen 10-325 mg 1 Each Tablet1 Tab PO BID PRN For Pain #90 05/04/16 Sennosides (Senna)8.6 Mg Tablet8.6 Mg PO BID 05/04/16 Ranitidine 300 Mg Ksfwrd607 Mg PO BID #180 05/04/16 Prochlorperazine Maleate (Prochlorperazine)10 Mg Xeowjk40 Mg PO Q6H PRN For Nausea #270 05/04/16 Polyethylene Glycol 3350 17 Gm Powd.pack17 Gm PO DAILY 05/04/16 Nitroglycerin SL 0.4 Mg Tab.subl0.4 Mg SL Q5MIN PRN For Chest Pain #25 05/04/16 Insulin Human Lispro (HumaLOG U100 Insulin Vial)100 Unit/Ml Wlqb95-99 Units SC TIDAC #90 05/04/16 Losartan Potassium 50 Mg Jieizy45 Mg PO DAILY #90 05/04/16 Levothyroxine (Synthroid)125 Mcg Plwtzr060 Mcg PO DAILY #180 05/04/16 Insulin Aspart (NovoLOG 70/30 U100 Insulin Vial)100 Unit/Ml Vial64 Unit SUBQ BID #1 VIAL Ref 0 05/04/16 Gabapentin 100 Mg Qelmiqs659 Mg PO BID #360 05/04/16 [place]-3 Fatty Acids/Fish Oil (Fish Oil Conc 1,000 mg Softgel)1 Each Capsule1 Each PO DAILY 05/04/16 Duloxetine 30 Mg Capsule.dr30 Mg PO HS #90 05/04/16 Docusate Sodium (Colace)100 Mg Ztkozif054 Mg PO BID Ref 0 05/04/16 Calcium Carbonate (Calcium)600 Mg Tablet1,250 Mg PO BID 05/04/16 Baclofen 20 Mg Ayrflt94 Mg PO BID #180 05/04/16 Aspirin 81 Mg Fkuihv10 Mg PO DAILY Ref 0 05/04/16 Oxybutynin Chloride ER 10 Mg Tab.er.2410 Mg PO BID #90 05/04/16 Diltiazem ER (Cartia XT)120 Mg Cap.er.24l208 Mg PO DAILY #30 05/04/16 Warfarin Sodium 3 Mg Tablet3 Mg PO DAILY #30 05/04/16 Torsemide 20 Mg Eexbkk22 Mg PO DAILY #60 05/04/16 Fluticasone Propionate (Fluticasone Propionate Nasal)16 Gm [place].susp1 [place] NASAL BID #16 05/04/16 Clopidogrel 75 Mg Kzcodd30 Mg PO DAILY #30 05/04/16 Carvedilol 12.5 Mg Apphzj15.5 Mg PO BID #120 05/04/16 Atorvastatin Calcium 40 Mg Hqsfld19 Mg PO HS #90 05/04/16 Amiodarone 200 Mg Vhcxwk598 Mg PO DAILY #90 05/04/16 Discontinued Reported Medications Insulin Regular, Human (HUMulin-R U100 Insulin Vial)100 Unit/1 Ml Dvju41-91 Unit SUBQ TIDAC #1 VIAL Ref 0 05/04/16 History HEENT History: Positive for:: Cataracts Glaucoma (possible) Denies:: Dysphagia Sinus Problem Cardiovascular History: Positive for:: Cardiac Surgery (Stents, Bypass, Cath) Chest Pain Edema Hypertension Denies:: Congestive Heart Failure Heart Murmur Irregular Heartbeat Pacemaker Thrombophlebitis Respiratory History: Positive for:: Chest Surgery Dyspnea Denies:: Asthma COPD Emphysema Hemoptysis Pneumonia Tuberculosis Neurological History: Positive for:: Dizziness Headaches Denies:: Alzheimer's Disease CVA Dementia Parkinson's Disease Seizures Gastrointestinal History: Positive for:: Gastroesphageal Reflux Gastrointestinal Bleeding (this admission.) Heartburn (occasionally ) Denies:: Diverticulitis Hepatitis Hiatal Hernia Rectal Bleeding Hx of Problems?: Yes Genitourinary History: Positive for:: Urinary Tract Infection Denies:: HX of Hemodialysis Kidney Stones HX of Peritoneal Dialysis: No Female Hx: Positive for:: Problems with Breasts? (Breast CA Right Masectomy) Denies:: Currently Endometriosis Pelvic Inflammatory Musculoskeletal History: Positive for:: Back Injury Denies:: Joint Replacement Musculoskeletal Trauma Hx of Psycho/Social Problems?: Yes Psycho Social History: Positive for:: Hx Depression Denies:: Anxiety Bipolar Disorder Suicide Attempt Hx Surgeries?: Yes (bypass, ) Other History: Positive for:: Cancer (Breast CA) Hospitalization (surgeries, stents) Thyroid Disease History Blood Transfusions: Positive for:: Accept Blood Products? Blood Transfusions Denies:: Blood Transfuse Reaction Hx Diabetes: YesBedside Blood Glucose: 200 Hx Alcohol Use: NoHx Substance Use: No Smoking Status: Smoker Current Status UNK Have You Smoked inLast 12 mo: YesApprox How Many Cigarettes/day: 20 Stop/Bang Treated for Sleep Apnea?: No (refuses to use Cpap) Do You Have a CPAP Machine?: No (refuses to use Cpap) S-Snoring: Do You Snore Loudly: Yes T-Tired: feel tired, fatigued: Yes O-Obsered: Observed not breath: Yes P-Blood Pressure: treated: Yes B- Body Mass Index > 35 kg/m2: Yes A- Age over 50: Yes N- Neck Large Circumference: Yes G- Gender Male: No ANDRES Total Score: 7 ANDRES Risk Assessment: High Risk, =/>3 Yes ANDRES Category 2: Yes Risk Assessment Category Category 1A: Patient has history of documented sleep apnea, and HAS NOT received any narcotic, sedative or anesthesia administration during this stay. Category 1B: Patient has history of documented sleep apnea, and HAS received any narcotic , sedative or anesthesia administration during this stay Category 2: Patient has SUSPECTED Obstructive Sleep Apnea, and HAS received any narcotic , sedative or anesthesia administration during this stay. Category 3: Patient has SUSPECTED Obstructive Sleep Apnea and HAS NOT received narcotic, sedative or anesthesia administration during this stay. Category 4: Outpatient in Procedural Areas with known sleep apnea or who screen positive for High Risk via the STOP/BANG questionnaire. Exam Exam Vital Signs Vital Signs Date Time Temp Pulse Resp B/P Pulse Ox O2 Delivery O2 Flow Rate FiO2 05/06/16 08:20 36.6 66 18 132/55 99 Room Air 05/06/16 05:06 36.4 66 20 145/62 99 Room Air 05/06/16 05:00 75 05/06/16 01:34 36.6 68 20 139/53 98 Room Air General Appearance: Alert, Oriented X3, Cooperative, No Acute Distress HEENT/AIRWAY: MP 2 Lungs: Clear to Auscultation, Normal Air Movement Heart: Exam Unremarkable, Regular Rate/Rhythm, No Murmurs/Rubs/Gallops Meds/Labs/Diagnostics Bedside Blood Glucose: 200 Labs Test 05/04/16 16:30 05/05/16 02:10 05/05/16 03:00 05/05/16 08:25 White Blood Count 17.6th/mm3 (3.8-10.1) Red Blood Count 1.78mil/mm3 (3.90-5.20) Mean Corpuscular Volume 96fL (81-100) Mean Corpuscular Hemoglobin 29.2pg (27.0-35.0) Mean Corpuscular Hemoglobin Concent 30.4% (32.0-37.0) Red Cell Distribution Width 18.8% (12.3-15.4) Platelet Count 432bil/L (150-400) Neutrophils (%) (Auto) 83% (40-74) Lymphocytes (%) (Auto) 11% (14-46) Monocytes (%) (Auto) 5% (4-12) Eosinophils (%) (Auto) 1% (0-5) Basophils (%) (Auto) 0% (0-3) Reticulocyte Count,Calculated 8.8% (0.6-2.6) Lactic Acid Level 1.8mmol/L (0.4-2.0) Magnesium Level 2.7mg/dL (1.6-2.6) Aspartate Amino Transf (AST/SGOT) 23U/L (0-50) Alanine Aminotransferase (ALT/SGPT) 18U/L (0-32) Alkaline Phosphatase 63U/L (25-165) Pro-B-Type Natriuretic Peptide 619.0pg/mL (0-301) Total Protein 5.9g/dL (6.4-8.4) Albumin 3.4g/dL (3.4-5.0) Haptoglobin 181mg/dL (34-200) Total Bilirubin 0.2mg/dL (0.0-1.2) Direct Bilirubin 0.2mg/dL (0.0-0.3) Urine Color Straw (YELLOW) Urine Appearance Cloudy (CLEAR,HAZY) Urine pH 5.5 (5.0-8.0) Urine Specific [place] 1.010 (1.003-1.035) Urine Protein Negativemg/dL (NEG,TRACE) Urine Glucose (UA) Negativemg/dL (NEGATIVE) Urine Ketones Negativemg/dL (NEGATIVE) Urine Occult Blood Trace (NEGATIVE) Urine Nitrite Negative (NEGATIVE) Urine Bilirubin Negative (NEGATIVE) Urine Urobilinogen Normalmg/dL (NORMAL) Urine Leukocyte Esterase Large (NEGATIVE) Urine RBC 0-2/hpf (0-2) Urine WBC >50/hpf (0-5) Urine Epithelial Cells Many/hpf (NONE-MOD) Urine Crystals None seen (NONE SEEN) Urine Bacteria Many/hpf (NONE-FEW) Urine Hyaline Casts None/lpf (NONE) Urine Granular Casts None seen (NONE SEEN) Urine Waxy Casts None seen (NONE SEEN) Urine Red Blood Cell Casts None seen (NONE SEEN) Urine White Blood Cell Casts None seen (NONE SEEN) Urine Mucus None seen (None Seen) Urine Trichomonas None seen (NONE SEEN) Urine Yeast None (NONE SEEN) Urine Culture Reflexed Indicated Prothrombin Time 14.0sec (8.1-12.5) Prothromb Time International Ratio 1.30ratio Sodium Level 140mEq/L (134-144) Potassium Level 4.3mEq/L (3.5-5.2) Chloride Level 104mEq/L (97-108) Carbon Dioxide Level 23mmol/L (18-29) Blood Urea Nitrogen 100mg/dL (8-27) Creatinine 1.72mg/dL (0.57-1.00) Estimat Glomerular Filtration Rate 42mL/min (>59) Glucose Level 164mg/dL (60-99) Calcium Level 8.6mg/dL (8.5-10.1) Troponin T 0.010ug/L (0.0-0.011) Test 05/05/16 21:45 Hemoglobin 7.3g/dL (12.0-15.6) Hematocrit 23.2% (35.0-46.0) Plan Impression Patient chart reviewed, patient interviewed and anesthestic plan with risks, benefits, and alternatives discussed, and informed consent obtained. ASA Physical Status: ASA3 Severe Disease Anesthetic Plan: MAC Bene/Risks/Altern/Consents: Yes HP Complete Prior to Induction: Yes Paola Fuentes MD May 06, 2016 09:20
--- NOTE | 2016-05-06 09:30 | NUR ---
Endo/Medications/Blood Glucose This RN holding current AM medications listed in EMR per Endo RN. Blood Glucose 200 NPO after midnight, clear liquids prior.
--- NOTE | 2016-05-06 09:31 | DRSVH ---
PROCEDURE: CT ABDOMEN AND PELVIS WITHOUT CONTRAST ([id number]) INDICATIONS: SEVERE ANEMIA, R/O INTRO-ABDOMINAL BLEED TECHNIQUE: After the administration of oral contrast, 5 mm thick sections acquired from the diaphragms to the sy mphysis. 5 mm coronal and sagittal reformats were performed. For radiation dose reduction, the foll owing was used: automated exposure control, adjustment of mA and/or kV according to patient size. COMPARISON: None. FINDINGS: Image quality: Excellent. ABDOMEN: Lung bases: There is a left lower lobe pulmonary nodule measuring up to 1 cm in Heart size is normal . Solid organs: Liver and spleen are normal in size. Gallbladder is surgically absent. Pancreas is n ormal in size. No adrenal nodules. Both kidneys are normal in size, without hydronephrosis or nephr olithiasis. Peritoneum and bowel: Bowel loops demonstrate normal wall thickness and caliber. The appendix is no rmal in appearance. No free fluid or air. Nodes and vessels: No retroperitoneal or mesenteric adenopathy by size criteria. Aorta and inferior vena cava are normal in size. Miscellaneous: No ventral hernias. PELVIS: Genitourinary: Bladder wall thickness is normal. The bladder is distended with an air-fluid level p resent. Miscellaneous: No inguinal hernias or adenopathy. Bones: No suspicious bony lesions. No vertebral body compression fractures. IMPRESSION: 1. Left lower lobe pulmonary nodule measuring up to 1 cm is nonspecific but suspicious for a neoplas m. Recommend further evaluation with PET/CT, percutaneous CT-guided biopsy, or short-term followup i n 3 months. 2. No evidence of intra-abdominal hematoma as clinically queried. 3. Gas demonstrated within the urinary bladder made reflect sequelae of recent catheterization. Rec ommend correlation with clinical history. Dictated by: Stan Zavaleta M.D. on 05/06/2016 at 9:26 Approved by: Stan Zavaleta M.D. on 05/06/2016 at 9:26
[2016-05-06] MEDS ORDERED: Lactated Ringer's 0 ML IV ONE (09:54)
[2016-05-06] MEDS ORDERED: 0.9% Sodium Chloride 1,000 ML ONE (09:54)
--- NOTE | 2016-05-06 11:06 | PCM.ANEP1 ---
Post Anesthesia Phase 1 PACU Phase 1 Assessment Date of Service: May 05, 2016 Vital Signs Vital Signs Date Time Temp Pulse Resp B/P Pulse Ox O2 Delivery O2 Flow Rate FiO2 05/06/16 10:32 36.7 64 16 83/47 98 Room Air 05/06/16 10:13 61 05/06/16 08:20 36.6 66 18 132/55 99 Room Air 05/06/16 05:06 36.4 66 20 145/62 99 Room Air 05/06/16 05:00 75 Anesthetic Administered: MAC Level of Alertness: Awake, talking MACEDO's with Equal Strength: Yes Pain: No Pain Scale Score: 9 Nausea or Vomiting: No Oxygen Delivery: Nasal Cannula Lungs: Clear to Auscultation, Normal Air Movement Paola Fuentes MD May 06, 2016 11:06
--- NOTE | 2016-05-06 11:24 | PCM.ANEP2 ---
Post Anesthesia Evaluation ASA/CMS Post Anesthesia VS in Patient's Normal Range?: Yes Resp Stable; Airway Patent?: Yes CV Function & Hydration Stable: Yes Mental Status Recovered?: Yes Pain control Satisfactory?: Yes N/V Control Satisfactory?: Yes Paola Fuentes MD May 06, 2016 11:24
--- NOTE | 2016-05-06 11:26 | ENDO ---
[address] [address] ENDOSCOPY PROCEDURE PATIENT: SLADE PINEDA : 1945 MR#: [id number] ADMIT: 05/04/2016 JOB ID: [id number] PROCEDURE: Esophagogastroduodenoscopy. INDICATION: Anemia. ANESTHESIA: Patient's ASA classification, Mallampati score, and medications as per anesthesia note. INSTRUMENT USED: GIF H 180 J. PROCEDURE DETAILS: After informed consent was obtained, the patient was brought into the GI suite, where she was placed on oxygen via nasal cannula and monitored with continuous pulse oximeter, telemetry, and blood pressure monitoring. A time-out was performed and then she was placed in the left lateral decubitus position and medications were administered for sedation. A bite block was placed. The standard EGD scope was inserted through the bite block and advanced under direct visualization to the second portion of the duodenum without difficulty. FINDINGS: 1. Bile stained mucosa was noted throughout the examined portions of the duodenum. 2. Normal appearing duodenal bulb. At the pylorus there was a whitish plaque noted that measured approximately 8 mm to 1 cm in a semi circular fashion around the pylorus. Biopsies were not obtained. 3. In the antrum there was an approximately 7-8 mm submucosal what appeared to be nodule. Overlying mucosa appeared normal. 4. Erythema was also noted in the antrum suggestive of gastritis. 5. Retroflexed views in the gastric body revealed a normal-appearing cardia and fundus. 6. In the proximal gastric body there was a punctate erosion. No active bleeding was seen. There was no old or fresh blood seen in the stomach. 7. The GE junction was at approximately 42 cm and was regular. 8. Normal appearing esophagus. IMPRESSION: 1. Gastritis. 2. Antral nodule. 3. Punctate erosion in the proximal gastric body. 4. Whitish plaque at the pylorus. RECOMMENDATIONS: The patient and family deferred on colonoscopy for further evaluation of anemia as the patient reports a longstanding history of anemia for which she has undergone multiple colonoscopies, most recently three years ago. Would recommend, however, repeating colonoscopy and if that is normal consider capsule endoscopy for further evaluation of anemia. Family states that she has never had a capsule endoscopy for evaluation of anemia. Continue to follow H/H and transfuse blood products as needed. COMPLICATIONS: None. ESTIMATED BLOOD LOSS: Zero. MTDD
[2016-05-06] MEDS ORDERED: fentaNYL-PF 50 mCg/mL 2 mL Inj ONE (11:37)
[2016-05-06] MEDS: Pantoprazole 4 mg/mL 10 mL Inj IVPUSH SCH ×2 (13:12→18:28)
[2016-05-06] MEDS: Fluticasone 0.05% 15 Spray/2 Gm 16 Gm Nasal Spray NASAL SCH ×2 (13:16→20:02)
[2016-05-06] MEDS ORDERED: Insulin Human NPH 100 Unit/mL 3 mL Inj SUBQ ONE (13:55)
[2016-05-06] MEDS ORDERED: Glucose 40% Oral Gel 15 Gm Tube PO PRN (13:55)
--- NOTE | 2016-05-06 14:37 | NUR ---
Evaluation completed. Please go to "Notes" then click on "Assessments and Notes" (bottom left corner of screen). Then select appropriate discipline tab on top of screen.
[2016-05-06 14:52] LABS: Mean Corpuscular Hemoglobin 29.7 pg (27.0-35.0); Mean Corpuscular Volume 96.5 fL (81-100)
--- NOTE | 2016-05-06 17:22 | PCM.PNMED ---
Subjective Date of Service May 06, 2016 Subjective 70-year-old woman with atrial fibrillation on warfarin, status post cardiac stent on now on Plavix, history of ischemic colitis in 2007, and history of chronic anemia of uncertain cause presents with episode of syncope, possible seizure, acute kidney injury and severe symptomatic anemia. She was fatigued this morning but no focal complaints. He has no abdominal complaints. She had one normal appearing bowel movement. She has had no further seizure like episodes. When able to ambulate with assistance the bathroom but is generally weak. Exam Vital Signs Vital Sign - Last Date Time Temp Pulse Resp B/P Pulse Ox O2 Delivery O2 Flow Rate FiO2 05/06/16 16:18 68 19 115/51 99 Room Air 05/06/16 11:05 2 05/06/16 10:32 36.7 Intake and Output 05/05/16 05/05/16 05/06/16 Cumulative From/Thru 15:00 23:00 07:00 05/04/16 16:15 - 05/05/16 20:04 Intake Total 2035 ml 2900 ml Output Total 800 ml Balance 2035 ml 2100 ml Intake Oral 410 ml 810 ml IV Total 866 ml 1011 ml Packed Cells 759 ml 774 ml FFP 305 ml Output Urine Total 800 ml # Voids 3 5 # Bowel Movements 0 0 Exam General: Obese woman in no acute distress HEENT: sclerae anicteric, oral mucosa moist Neck: no apparent JVD Chest: clear to auscultation Cardiac: S1S2, II/ systolic murmur Abdomen: BS present, non-tender Extremities: No edema, stasis changes Neuro: A&O, responding to questions appropriately, cranial nerves symmetric IVs and Medications Medications Reviewed: Medications were reviewed in detail Lab and Diagnostics Result Diagram: 05/06/16 1440 05/06/16 1440 X-Rays, CTs and MRIs PROCEDURE: CT BRAIN WITHOUT CONTRAST ([id number]) IMPRESSION: 1. No acute intracranial findings. 2. Moderate findings likely associated with chronic microvascular ischemic changes. Dictated by: Lily Pereira M.D. on 05/04/2016 at 17:00 PROCEDURE: X-RAY CHEST ONE VIEW, PORTABLE ([id number]) IMPRESSION: Improved aeration of the bilateral lungs when compared with the prior chest film dated 04/21/16. Dictated by: Lily Pereira M.D. on 05/04/2016 at 16:44 . Assessment & Plan Active and/or high risk problems: # Symptomatic anemia. Acute on chronic. Family reports past episodes of evaluation for anemia with no source identified. The patient gives no history to suggest acute GI bleeding at this time. Emergency department note documented red blood on rectal exam but other reports suggest brown stool. There is no evidence of acute GI bleeding during first 48 hours of observation. There is no evidence of hemolysis. Clinically there are no symptoms to suggest hematoma or other bleeding site. She reported symptoms of malaise and back pain after transfusion; She was given Benadryl and acetaminophen and proceeded with transfusion. She has tolerated endoscopy today no findings attributable to acute bleeding. - Resume diet - Recheck H&H in a.m. # Acute kidney injury and/or chronic kidney disease. We do not have baseline serum creatinine. Family reports prior episode of acute kidney injury in which she was encephalopathic and agitated. She seems symptomatically improved with hydration and creatinine is declining.. - Follow with hydration and blood transfusion - Daily renal panel # Paroxysmal Atrial fibrillation with anticoagulation excess on warfarin. Acute. INR was 5.32 on admission. Vitamin K was given with marked decline in INR to 1.3 - Resume Coumadin - Telemetry # Coronary stent 2 weeks ago. No current cardiac symptoms. Troponins are negative. 2 calls placed to policy cancellation clerk in [place]. No response. Cardiac status seems stable at present. - Resume Plavix after endoscopy, # Seizure or syncopal episode. History is unclear. Syncope due to symptomatic anemia seems most likely. This does not sound like generalized tonic-clonic seizure based on history. Her only proconvulsive medication is prochlorperazine which she has taken for many years. - Follow clinically with treatment for anemia # Encephalopathy, acute. Patient is showing signs of mild delirium and family is very concerned about her mental status. While her affect seems very disordered, and she makes some nonsensical statements, she seems very alert and following conversation and responding with details as needed. Clinical impression is metabolic encephalopathy due to uremia and anemia. -Would prefer to minimize medication but will trial low dose of clonazepam due to her restlessness and anxiety - Follow clinically # ANDRES on CPAP. Continue use of home CPAP device, especially of sedatives were given. Chronic, stable or resolved issues: Chronic gagging --OVERHEAD CLEANER swallow eval pending smoker, declines patch/gum due to nausea side effect history of anemia chronic kidney disease history of breast cancer Diabetes mellitus, Hyperlipidemia, Hypertension, cardiac stenting, CABG 3x hypothyroidism overactive bladder chronic pain Disposition: Patient will proceed with further anemia workup as an outpatient. If hemoglobin and creatinine are stable and she is able to transfer safely then we will plan to discharge in a.m. on 05/07. Pain Evaluation: Adequate Pain Control VTE Prophylaxis: Theraputic Anticoag with Warfarin Resuscitation Status: CPR: Attempt Resuscitation Time spent 45 minutes per patient assessment, review of data with consultants, and counseling patient and family at bedside. Terry Asencio MD May 06, 2016 17:22
[2016-05-06] MEDS: Insulin LISPRO 300 Unit/3 mL Inj SUBQ SCH ×2 (18:27→20:05)
--- NOTE | 2016-05-06 19:04 | NUR ---
Medications/Mentation/Food Patient given all morning medications late due to Endo procedure. Tolerated well. Pt conversing with this RN, able to recall events, aware of all medications. Happy to be able to eat again.
[2016-05-06] MEDS: DULoxetine 30 mg DR Capsule PO SCH (20:02)
[2016-05-06] MEDS ORDERED: Insulin GLARgine 100 Unit/mL Syringe SUBQ SCH (21:00)
[2016-05-07 00:15] VITALS: BP 143/63; PULSE 66; RESP 18; O2SAT 97
[2016-05-07 03:42] VITALS: BP 154/73; PULSE 60; RESP 18; O2SAT 99
[2016-05-07] MEDS: HYDROcodone-APAP 10-325 mg PO PRN ×2 (04:32→11:33)
[2016-05-07 05:29] VITALS: PULSE 60
[2016-05-07 07:55] VITALS: BP 152/60; PULSE 65; RESP 18
[2016-05-07] MEDS: Insulin LISPRO 300 Unit/3 mL Inj SUBQ SCH (08:38)
[2016-05-07] MEDS: Pantoprazole 4 mg/mL 10 mL Inj IVPUSH SCH (08:40)
[2016-05-07] MEDS: Fluticasone 0.05% 15 Spray/2 Gm 16 Gm Nasal Spray NASAL SCH (08:46)
[2016-05-07] MEDS: Diltiazem CD 120 mg ER24 Capsule PO SCH (08:47)
[2016-05-07 10:23] VITALS: PULSE 64
[2016-05-07] MEDS ORDERED: NITR100C PO (10:27)
[2016-05-07] MEDS ORDERED: WARF1TAB6 PO (10:27)
--- NOTE | 2016-05-07 10:39 | PCM.DIMED ---
Discharge Instructions Date of Service May 07, 2016 Dates of Hospitalization May 04, 2016 at 18:04 Discharge Diagnosis Discharge Diagnosis Syncope; symptomatic anemia; probable acute GI blood loss anemia; cystitis Medication Instructions We recommend that you reduce the warfarin dose slightly to 2 mg per day ( previously 3 mg per day) due to the high INR of 5.3 at time of admission. Your INR was reversed with vitamin K, so it may take some time to come back up to the therapeutic range of 2-3. You should call your primary doctor and arrange for an INR/pro time test early this week. The warfarin prescription was transmitted to [facility] in [place]. A prescription for nitrofurantoin (Macrodantin) to be taken for 5 days has been transmitted to your pharmacy. You should continue all other medications as usual. Test Results INR: 5.3 (05/04), 1.43 (05/05), 1.3 (05/05) CBC Test 05/04/16 16:30 05/05/16 02:10 05/06/16 14:40 Neutrophils (%) (Auto) 83% (40-74) Lymphocytes (%) (Auto) 11% (14-46) Monocytes (%) (Auto) 5% (4-12) Eosinophils (%) (Auto) 1% (0-5) Basophils (%) (Auto) 0% (0-3) Reticulocyte Count,Calculated 8.8% (0.6-2.6) Haptoglobin 181mg/dL (34-200) White Blood Count 11.1th/mm3 (3.8-10.1) Red Blood Count 2.59mil/mm3 (3.90-5.20) Hemoglobin 7.7g/dL (12.0-15.6) Hematocrit 25.0% (35.0-46.0) Mean Corpuscular Volume 96.5fL (81-100) Mean Corpuscular Hemoglobin 29.7pg (27.0-35.0) Mean Corpuscular Hemoglobin Concent 30.8% (32.0-37.0) Red Cell Distribution Width 18.6% (12.3-15.4) Platelet Count 306bil/L (150-400) CMP Test 05/04/16 16:30 05/05/16 02:10 05/05/16 08:25 05/06/16 14:40 Lactic Acid Level 1.8mmol/L Magnesium Level 2.7mg/dL Aspartate Amino Transf (AST/SGOT) 23U/L Alanine Aminotransferase (ALT/SGPT) 18U/L Alkaline Phosphatase 63U/L Pro-B-Type Natriuretic Peptide 619.0pg/mL Total Protein 5.9g/dL Albumin 3.4g/dL Total Bilirubin 0.2mg/dL Direct Bilirubin 0.2mg/dL Troponin T 0.010ug/L Sodium Level 148mEq/L Potassium Level 4.4mEq/L Chloride Level 112mEq/L Carbon Dioxide Level 24mmol/L Blood Urea Nitrogen 67mg/dL Creatinine 1.43mg/dL Estimat Glomerular Filtration Rate 52mL/min Glucose Level 197mg/dL Calcium Level 8.3mg/dL Urinalysis 05/05/16: Urine WBC greater than 50, urine RBC 0-2, bacteria many, microbiology greater than 100,000 CFU gram-negative nurys probable Escherichia coli; sensitivity pending PATIENT: SLADE PINEDA : 1945 MR#: [id number] ADMIT: 05/04/2016 JOB ID: [id number] PROCEDURE: Esophagogastroduodenoscopy. INDICATION: Anemia. ANESTHESIA: Patient's ASA classification, Mallampati score, and medications as per anesthesia note. INSTRUMENT USED: GIF H 180 J. PROCEDURE DETAILS: After informed consent was obtained, the patient was brought into the GI suite, where she was placed on oxygen via nasal cannula and monitored with continuous pulse oximeter, telemetry, and blood pressure monitoring. A time-out was performed and then she was placed in the left lateral decubitus position and medications were administered for sedation. A bite block was placed. The standard EGD scope was inserted through the bite block and advanced under direct visualization to the second portion of the duodenum without difficulty. FINDINGS: 1. Bile stained mucosa was noted throughout the examined portions of the duodenum. 2. Normal appearing duodenal bulb. At the pylorus there was a whitish plaque noted that measured approximately 8 mm to 1 cm in a semi circular fashion around the pylorus. Biopsies were not obtained. 3. In the antrum there was an approximately 7-8 mm submucosal what appeared to be nodule. Overlying mucosa appeared normal. 4. Erythema was also noted in the antrum suggestive of gastritis. 5. Retroflexed views in the gastric body revealed a normal-appearing cardia and fundus. 6. In the proximal gastric body there was a punctate erosion. No active bleeding was seen. There was no old or fresh blood seen in the stomach. 7. The GE junction was at approximately 42 cm and was regular. 8. Normal appearing esophagus. IMPRESSION: 1. Gastritis. 2. Antral nodule. 3. Punctate erosion in the proximal gastric body. 4. Whitish plaque at the pylorus. RECOMMENDATIONS: The patient and family deferred on colonoscopy for further evaluation of anemia as the patient reports a longstanding history of anemia for which she has undergone multiple colonoscopies, most recently three years ago. Would recommend, however, repeating colonoscopy and if that is normal consider capsule endoscopy for further evaluation of anemia. Family states that she has never had a capsule endoscopy for evaluation of anemia. Continue to follow H/H and transfuse blood products as needed. COMPLICATIONS: None. ESTIMATED BLOOD LOSS: Zero. José Miguel Ward MD 05/06/16 1103 Diet Heart Healthy, Diabetic Activity No restrictions, Other (try to increase our mobility and strength with assistance as needed) Call your provider Bleeding Patient Instructions You underwent an upper endoscopy with no source of bleeding identified. Our gastroenterologists Dr. Ward recommends that you follow-up with a lead welder in the [facility] for colonoscopy, and capsule endoscopy if necessary. Your bone marrow appeared to be sluggish in response to your anemia (reticulocyte production index 1%) hence you may also inquire about job coach evaluation with your primary care provider. Follow-up plan Contact Dr. Melchor for a follow-up appointment as soon as is feasible. Follow-up Provider: Stan Guerra MD Follow-up with PCP in: 1 week Terry Asencio MD May 07, 2016 10:39
--- NOTE | 2016-05-07 10:49 | PCM.PNMED ---
Subjective Date of Service May 07, 2016 Subjective no melena , hematochezia or hematemesis overnight states she feels better "I'm ready to go home" Exam Vital Signs Vital Sign - Last Date Time Temp Pulse Resp B/P Pulse Ox O2 Delivery O2 Flow Rate FiO2 05/07/16 10:23 64 05/07/16 07:55 36.7 18 152/60 Room Air 05/07/16 03:42 99 05/06/16 11:05 2 Intake and Output 05/06/16 05/06/16 05/07/16 Cumulative From/Thru 15:00 23:00 07:00 05/04/16 16:15 - 05/07/16 06:43 Intake Total 200 ml 1200 ml 236 ml 4536 ml Output Total 800 ml Balance 200 ml 1200 ml 236 ml 3736 ml Intake Oral 1200 ml 236 ml 2246 ml IV Total 200 ml 1211 ml Packed Cells 774 ml FFP 305 ml Output Urine Total 800 ml # Voids 3 2 10 # Bowel Movements 2 0 2 Exam GEN- no apparent distress, oriented and appropriate HEENT-mild pallor RESP-clear bilaterally CVS-RRR Abdomen-benign EXT- trace edema Lab and Diagnostics Result Diagram: 05/06/16 1440 05/06/16 1440 X-Rays, CTs and MRIs PROCEDURE: CT BRAIN WITHOUT CONTRAST ([id number]) IMPRESSION: 1. No acute intracranial findings. 2. Moderate findings likely associated with chronic microvascular ischemic changes. Dictated by: Lily Pereira M.D. on 05/04/2016 at 17:00 PROCEDURE: X-RAY CHEST ONE VIEW, PORTABLE ([id number]) IMPRESSION: Improved aeration of the bilateral lungs when compared with the prior chest film dated 04/21/16. Dictated by: Lily Pereira M.D. on 05/04/2016 at 16:44 . Assessment & Plan Acute on chronic anemia -etiology unclear -colonoscopy recommended as outpatient, if colonoscopy normal then she will need capsule endoscopy to further evaluate, followed by Hematology consultation if capsule endoscopy normal. -Patient to follow up in [place] with Gastroenterology for above recommendations. Patient also to follow up with Track Laying Equipment Operator in [place]. Patient also to follow up with PCP in [place]. Antral submucosal nodule/Prepyloric plaque -not biopsied on yesterday's EGD exam as patient was on plavix -recommend repeat EGD with biopsies VTE Prophylaxis: Theraputic Anticoag with Warfarin Resuscitation Status: CPR: Attempt Resuscitation José Miguel Ward MD May 07, 2016 10:49
--- NOTE | 2016-05-07 12:34 | NUR ---
KATHLEEN: signed by patient's spouse and patient was present.
--- NOTE | 2016-05-07 13:18 | NUR ---
Discharge Patient discharged to home with at approximately 1136. Patient given discharge packet, information on new medication, Upper GI bleed, follow up appointments, next dose to be taken clearly written with times and dates. IVs DC with catheter intact, Tele removed, alarm security or surveillance monitor notified. Patient left with all belongings, escorted by COMMERCIAL FISHER to the door.
--- NOTE | 2016-05-07 17:32 | PCM.DC.MED ---
Discharge Summary Date of Service May 07, 2016 Dates of Hospitalization Date of Hospital Admission May 04, 2016 at 18:04 Date of Discharge: May 07, 2016 Providers: Admitting Physician: Neeraj Grayson MD Primary Care Physician: Stan Guerra MD Attending Physician: José Miguel Ward MD Diagnosis at Time of Discharge Diagnosis at Time of Discharge Syncope; symptomatic anemia; probable acute GI blood loss anemia; cystitis Consultations PATIENT: SLADE PINEDA : 1945 MR#: [id number] ADMIT: 05/04/2016 JOB ID: [id number] PROCEDURE: Esophagogastroduodenoscopy. INDICATION: Anemia. ANESTHESIA: Patient's ASA classification, Mallampati score, and medications as per anesthesia note. INSTRUMENT USED: GIF H 180 J. PROCEDURE DETAILS: After informed consent was obtained, the patient was brought into the GI suite, where she was placed on oxygen via nasal cannula and monitored with continuous pulse oximeter, telemetry, and blood pressure monitoring. A time-out was performed and then she was placed in the left lateral decubitus position and medications were administered for sedation. A bite block was placed. The standard EGD scope was inserted through the bite block and advanced under direct visualization to the second portion of the duodenum without difficulty. FINDINGS: 1. Bile stained mucosa was noted throughout the examined portions of the duodenum. 2. Normal appearing duodenal bulb. At the pylorus there was a whitish plaque noted that measured approximately 8 mm to 1 cm in a semi circular fashion around the pylorus. Biopsies were not obtained. 3. In the antrum there was an approximately 7-8 mm submucosal what appeared to be nodule. Overlying mucosa appeared normal. 4. Erythema was also noted in the antrum suggestive of gastritis. 5. Retroflexed views in the gastric body revealed a normal-appearing cardia and fundus. 6. In the proximal gastric body there was a punctate erosion. No active bleeding was seen. There was no old or fresh blood seen in the stomach. 7. The GE junction was at approximately 42 cm and was regular. 8. Normal appearing esophagus. IMPRESSION: 1. Gastritis. 2. Antral nodule. 3. Punctate erosion in the proximal gastric body. 4. Whitish plaque at the pylorus. RECOMMENDATIONS: The patient and family deferred on colonoscopy for further evaluation of anemia as the patient reports a longstanding history of anemia for which she has undergone multiple colonoscopies, most recently three years ago. Would recommend, however, repeating colonoscopy and if that is normal consider capsule endoscopy for further evaluation of anemia. Family states that she has never had a capsule endoscopy for evaluation of anemia. Continue to follow H/H and transfuse blood products as needed. COMPLICATIONS: None. ESTIMATED BLOOD LOSS: Zero. José Miguel Ward MD 05/06/16 1103 Procedures XRay, CTs & MRIs PROCEDURE: CT BRAIN WITHOUT CONTRAST ([id number]) IMPRESSION: 1. No acute intracranial findings. 2. Moderate findings likely associated with chronic microvascular ischemic changes. Dictated by: Lily Pereira M.D. on 05/04/2016 at 17:00 PROCEDURE: X-RAY CHEST ONE VIEW, PORTABLE ([id number]) IMPRESSION: Improved aeration of the bilateral lungs when compared with the prior chest film dated 04/21/16. Dictated by: Lily Pereira M.D. on 05/04/2016 at 16:44 PROCEDURE: CT ABDOMEN AND PELVIS WITHOUT CONTRAST ([id number]) FINDINGS: Image quality: Excellent. ABDOMEN: Lung bases: There is a left lower lobe pulmonary nodule measuring up to 1 cm in Heart size is normal. Peritoneum and bowel: Bowel loops demonstrate normal wall thickness and caliber. The appendix is normal in appearance. No free fluid or air. IMPRESSION: 1. Left lower lobe pulmonary nodule measuring up to 1 cm is nonspecific but suspicious for a neoplasm. Recommend further evaluation with PET/CT, percutaneous CT-guided biopsy, or short-term followup in 3 months. 2. No evidence of intra-abdominal hematoma as clinically queried. 3. Gas demonstrated within the urinary bladder made reflect sequelae of recent catheterization. Recommend correlation with clinical history. Dictated by: Stan Zavaleta M.D. on 05/06/2016 at 9:26 . Brief History History of present illness (at time of admission): Patient is a 70 year old female with a history of ischemic colitis, atrial fibrillation on Coumadin, diabetes mellitus, hypertension, CKD, CABG, and CAD with recent cardiac stenting on 04/28/16 who presents to the ED via EMS with decreased level of consciousness that began after an episode of tremulousness or possible seizure-like activity. Her describes seizure-like activity/ possible syncopal episode, with approximately 2 minutes of loss of consciousness. Her states that she started trembling and then shaking while sitting down; the patient has had increased weakness, unable to transfers on her own, but is at her baseline otherwise per her and is mentating normally. The patient does not believe that she lost consciousness during this episode, she simply states that she felt "real woozy". In the ED, she had stool that was reportedly guaiac positive. Her INR was 5.2, Hct 17.1. Cr was 1.97. Bilirubin and LFTs were normal. Brain CT and CXR were normal. INR was 5.32 on admission. She reports weakness and confusion. She denies any chest pain, difficulty breathing, abdominal pain, N/V/D, or fever. The patient underwent cardiac stenting 2 weeks ago at [facility] and was placed on Plavix after this hospital admission. She will show initiated warfarin therapy for atrial fibrillation. Patient has a history of chronic anemia, for which she has had colonoscopy in 1 or 2 occasions without specific diagnosis. She denies a family history of colon cancer. Her last colonoscopy was about 10 years ago. Hospital Course # Symptomatic anemia. Acute on chronic. Hemoglobin 5.2 on admission, 7.7 at discharge. MCV 96 prior to transfusion. Reticulocytes 8.8%, reticulocyte production index 1.3. Hypoproliferative normocytic anemia. Family reports past episodes of evaluation for anemia with no source identified. The patient gives no history to suggest acute GI bleeding at this time. Emergency department note documented red blood on rectal exam but other reports suggest brown stool. There is no evidence of acute GI bleeding during first 48 hours of observation, and she had no further stool output. There is no evidence of hemolysis or hematoma. She reported symptoms of malaise and back pain after transfusion; She was given Benadryl and acetaminophen and proceeded with transfusion. She has tolerated upper endoscopy today no findings attributable to acute bleeding. - Plan to continue evaluation for GI blood loss anemia with her primary care team at [facility] as an outpatient # Acute kidney injury and/or chronic kidney disease. We do not have baseline serum creatinine. Creatinine 1.97 on admission declined to 1.438 prior to discharge. Family reports prior episode of acute kidney injury in which she was encephalopathic and agitated. She seems symptomatically improved with hydration and creatinine is declining.. - CKD stage III at time of discharge - Follow-up with primary care # Pulmonary nodule. Incidentally discovered 1 cm pulmonary nodule (CT scan) is referred for follow-up by PCP # Cystitis. Patient was asymptomatic. UA revealed greater than 50 WBCs per hpf. Urine culture positive for greater than 100,000 GNR likely Escherichia coli - Prescription for Macrobid 100 twice a day 5 days given # Paroxysmal Atrial fibrillation with anticoagulation excess on warfarin. Acute. INR was 5.32 on admission. Vitamin K was given with marked decline in INR to 1.3 - Resume Coumadin. Previous dose was 3 mg per day. Dose reduction to 2 mg per day advised at the time of discharge - Patient to contact PCP for INR follow-up soon # Coronary stent 2 weeks ago. No current cardiac symptoms. Troponins are negative. Call placed to motor vehicle examiner in [place], but unable to establish contact. Cardiac status seems stable at present. - Resume Plavix # Seizure or syncopal episode. History is unclear. Pre-Syncope due to symptomatic anemia seems most likely. This does not sound like generalized tonic-clonic seizure based on history. Her only proconvulsive medication is prochlorperazine which she has taken for many years. - Follow clinically with treatment for anemia # Encephalopathy, acute. Patient is showed signs of mild delirium and family is very concerned about her mental status. While her affect seems very disordered, and she makes some nonsensical statements, she seems very alert and following conversation and responding with details as needed. Clinical impression is metabolic encephalopathy due to uremia and anemia. Mental status seen normal at time of discharge # ANDRES on CPAP. Continue use of home CPAP device, especially of sedatives were given. Chronic, stable or resolved issues: Chronic gagging --USABILITY SPECIALIST swallow eval pending smoker, declines patch/gum due to nausea side effect history of anemia chronic kidney disease history of breast cancer Diabetes mellitus, Hyperlipidemia, Hypertension hypothyroidism overactive bladder chronic pain Disposition: Discharged to home. Resume home health service which was established previously. Exam Vital Signs (Last) Date Time Temp Pulse Resp B/P Pulse Ox O2 Delivery O2 Flow Rate FiO2 05/07/16 10:23 64 05/07/16 07:55 36.7 18 152/60 Room Air 05/07/16 03:42 99 05/06/16 11:05 2 Exam General: Obese woman in no acute distress HEENT: sclerae anicteric, oral mucosa moist Neck: no apparent JVD Chest: clear to auscultation Cardiac: S1S2, II/ systolic murmur Abdomen: BS present, non-tender Extremities: No edema, stasis changes Neuro: A&O, responding to questions appropriately, cranial nerves symmetric, able to ambulate to bathroom with normal gait, somewhat weak Test 05/04/16 16:30 05/05/16 02:10 05/05/16 03:00 05/05/16 08:25 Neutrophils (%) (Auto) 83% (40-74) Lymphocytes (%) (Auto) 11% (14-46) Monocytes (%) (Auto) 5% (4-12) Eosinophils (%) (Auto) 1% (0-5) Basophils (%) (Auto) 0% (0-3) Reticulocyte Count,Calculated 8.8% (0.6-2.6) Lactic Acid Level 1.8mmol/L (0.4-2.0) Magnesium Level 2.7mg/dL (1.6-2.6) Aspartate Amino Transf (AST/SGOT) 23U/L (0-50) Alanine Aminotransferase (ALT/SGPT) 18U/L (0-32) Alkaline Phosphatase 63U/L (25-165) Pro-B-Type Natriuretic Peptide 619.0pg/mL (0-301) Total Protein 5.9g/dL (6.4-8.4) Albumin 3.4g/dL (3.4-5.0) Haptoglobin 181mg/dL (34-200) Total Bilirubin 0.2mg/dL (0.0-1.2) Direct Bilirubin 0.2mg/dL (0.0-0.3) Urine Color Straw (YELLOW) Urine Appearance Cloudy (CLEAR,HAZY) Urine pH 5.5 (5.0-8.0) Urine Specific [place] 1.010 (1.003-1.035) Urine Protein Negativemg/dL (NEG,TRACE) Urine Glucose (UA) Negativemg/dL (NEGATIVE) Urine Ketones Negativemg/dL (NEGATIVE) Urine Occult Blood Trace (NEGATIVE) Urine Nitrite Negative (NEGATIVE) Urine Bilirubin Negative (NEGATIVE) Urine Urobilinogen Normalmg/dL (NORMAL) Urine Leukocyte Esterase Large (NEGATIVE) Urine RBC 0-2/hpf (0-2) Urine WBC >50/hpf (0-5) Urine Epithelial Cells Many/hpf (NONE-MOD) Urine Crystals None seen (NONE SEEN) Urine Bacteria Many/hpf (NONE-FEW) Urine Hyaline Casts None/lpf (NONE) Urine Granular Casts None seen (NONE SEEN) Urine Waxy Casts None seen (NONE SEEN) Urine Red Blood Cell Casts None seen (NONE SEEN) Urine White Blood Cell Casts None seen (NONE SEEN) Urine Mucus None seen (None Seen) Urine Trichomonas None seen (NONE SEEN) Urine Yeast None (NONE SEEN) Urine Culture Reflexed Indicated Prothrombin Time 14.0sec (8.1-12.5) Prothromb Time International Ratio 1.30ratio Troponin T 0.010ug/L (0.0-0.011) Test 05/06/16 14:40 White Blood Count 11.1th/mm3 (3.8-10.1) Red Blood Count 2.59mil/mm3 (3.90-5.20) Hemoglobin 7.7g/dL (12.0-15.6) Hematocrit 25.0% (35.0-46.0) Mean Corpuscular Volume 96.5fL (81-100) Mean Corpuscular Hemoglobin 29.7pg (27.0-35.0) Mean Corpuscular Hemoglobin Concent 30.8% (32.0-37.0) Red Cell Distribution Width 18.6% (12.3-15.4) Platelet Count 306bil/L (150-400) Sodium Level 148mEq/L (134-144) Potassium Level 4.4mEq/L (3.5-5.2) Chloride Level 112mEq/L (97-108) Carbon Dioxide Level 24mmol/L (18-29) Blood Urea Nitrogen 67mg/dL (8-27) Creatinine 1.43mg/dL (0.57-1.00) Estimat Glomerular Filtration Rate 52mL/min (>59) Glucose Level 197mg/dL (60-99) Calcium Level 8.3mg/dL (8.5-10.1) Discharge Medications Discharge Medications Amiodarone (Amiodarone) 200 Mg Tablet 200 MG PO DAILY (Reported) Aspirin (Aspirin) 81 Mg Tablet 81 MG PO DAILY (Reported) Atorvastatin Calcium (Atorvastatin Calcium) 40 Mg Tablet 40 MG PO HS (Reported) Baclofen (Baclofen) 20 Mg Tablet 20 MG PO BID (Reported) Calcium Carbonate (Calcium) 600 Mg Tablet 1,250 MG PO BID (Reported) Carvedilol (Carvedilol) 12.5 Mg Tablet 12.5 MG PO BID (Reported) Clopidogrel (Clopidogrel) 75 Mg Tablet 75 MG PO DAILY (Reported) Diltiazem ER (Cartia XT) 120 Mg Cap.er.24h 120 MG PO DAILY (Reported) Docusate Sodium (Colace) 100 Mg Capsule 200 MG PO BID (Reported) Duloxetine (Duloxetine) 30 Mg Capsule.dr 30 MG PO HS (Reported) Fluticasone Propionate (Fluticasone Propionate Nasal) 16 Gm [place].susp 1 SPRAY NASAL BID (Reported) Gabapentin (Gabapentin) 100 Mg Capsule 100 MG PO BID (Reported) Insulin Aspart (NovoLOG 70/30 U100 Insulin Vial) 100 Unit/Ml Vial 64 UNIT SUBQ BID (Reported) Insulin Human Lispro (HumaLOG U100 Insulin Vial) 100 Unit/Ml Unit 10-36 UNITS SC TIDAC (Reported) Levothyroxine (Synthroid) 125 Mcg Tablet 250 MCG PO DAILY (Reported) Losartan Potassium (Losartan Potassium) 50 Mg Tablet 50 MG PO DAILY (Reported) Nitrofurantoin Macrocrystal (Nitrofurantoin Macrocrystal) 100 Mg Capsule 100 MG PO BID Prescribed by: KARSON WALTON MD [place]-3 Fatty Acids/Fish Oil (Fish Oil Conc 1,000 mg Softgel) 1 Each Capsule 1 EACH PO DAILY (Reported) Oxybutynin Chloride ER (Oxybutynin Chloride ER) 10 Mg Tab.er.24 10 MG PO BID ( Reported) Polyethylene Glycol 3350 (Polyethylene Glycol 3350) 17 Gm Powd.pack 17 GM PO DAILY (Reported) Ranitidine (Ranitidine) 300 Mg Tablet 300 MG PO BID (Reported) Sennosides (Senna) 8.6 Mg Tablet 8.6 MG PO BID (Reported) Torsemide (Torsemide) 20 Mg Tablet 20 MG PO DAILY (Reported) Warfarin Sodium (Warfarin Sodium) 1 Mg Tablet 2 MG PO DAILY Prescribed by: KARSON WALTON MD As needed Hydrocodone-Acetaminophen 10-325 mg (Hydrocodone-Acetaminophen 10-325 mg) 1 Each Tablet 1 TAB PO BID PRN PRN For Pain (Reported) Nitroglycerin SL (Nitroglycerin SL) 0.4 Mg Tab.subl 0.4 MG SL Q5MIN PRN PRN For Chest Pain (Reported) Prochlorperazine Maleate (Prochlorperazine) 10 Mg Tablet 10 MG PO Q6H PRN PRN For Nausea (Reported) Additional med instructions We recommend that you reduce the warfarin dose slightly to 2 mg per day ( previously 3 mg per day) due to the high INR of 5.3 at time of admission. Your INR was reversed with vitamin K, so it may take some time to come back up to the therapeutic range of 2-3. You should call your primary doctor and arrange for an INR/pro time test early this week. The warfarin prescription was transmitted to [facility] in [place]. A prescription for nitrofurantoin (Macrodantin) to be taken for 5 days has been transmitted to your pharmacy. You should continue all other medications as usual. Followup Plan Follow-up plan Contact Dr. Melchor for a follow-up appointment as soon as is feasible. Discharge Diet: Heart Healthy, Diabetic Discharge Activity: No restrictions, Other (try to increase our mobility and strength with assistance as needed) Patient Instructions You underwent an upper endoscopy with no source of bleeding identified. Our gastroenterologists Dr. Ward recommends that you follow-up with a hot braider [facility] for colonoscopy, and capsule endoscopy if necessary. 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 Follow-up Provider: Stan Guerra MD Follow-up with PCP in: 1 week Time spent 35 minutes copies to: Dr. Carleen Escobar; Stan Guerra MD, Jeffrey W MD May 07, 2016 10:40
== END 2016-05-07 11:38 | disposition home or self-care (01) | DRG 811 ==
LOC: EDBD 16:07 → SED 16:07 → PCC 18:04
PROVIDERS: ADMIT Urology; ATTEND Urology
PROC: 30233N1 Transfusion of Nonautologous Red Blood Cells into Peripheral Vein, Percutaneous Approach (ICD-10-PCS; 2016-05-04)
PROC: 30233K1 Transfusion of Nonautologous Frozen Plasma into Peripheral Vein, Percutaneous Approach (ICD-10-PCS; 2016-05-04)
PROC: 30233N1 Transfusion of Nonautologous Red Blood Cells into Peripheral Vein, Percutaneous Approach (ICD-10-PCS; 2016-05-05)
PROC: 0DJ08ZZ Inspection of Upper Intestinal Tract, Via Natural or Artificial Opening Endoscopic (ICD-10-PCS; principal; 2016-05-06 10:00)
DX: D62 Acute posthemorrhagic anemia (principal); G93.41 Metabolic encephalopathy; N17.9 Acute kidney failure, unspecified; I48.0 Paroxysmal atrial fibrillation; E11.9 Type 2 diabetes mellitus without complications; I12.9 Hypertensive chronic kidney disease with stage 1 through stage 4 chronic kidney disease, or unspecified chronic kidney disease; N18.3 Chronic kidney disease, stage 3 (moderate); I25.10 Atherosclerotic heart disease of native coronary artery without angina pectoris; Z95.1 Presence of aortocoronary bypass graft; R55 Syncope and collapse; Z79.01 Long term (current) use of anticoagulants; G47.33 Obstructive sleep apnea (adult) (pediatric); E03.9 Hypothyroidism, unspecified; F17.210 Nicotine dependence, cigarettes, uncomplicated; Z79.4 Long term (current) use of insulin; N30.90 Cystitis, unspecified without hematuria; B96.20 Unspecified Escherichia coli [E. coli] as the cause of diseases classified elsewhere